=== PATIENT | male | born 1955 | race Caucasian/White ===

== ENCOUNTER 2017-03-04 11:17 | Emergency (ER) | payer BC ==
[2017-03-04] MEDS ORDERED: Ketorolac INJ* 60 MG/2 ML VIAL IM ONE (11:44)
[2017-03-04] MEDS ORDERED: oxyCODONE/Acetamin 5/325 MG* TAB PO ONE (11:44)
--- NOTE | 2017-03-04 12:34 | ED ---
Back Pain - HPI Summary HPI Summary: 61M presents with left side back pain into left hip and thigh for a week. He states the pain is a sharp pain. He has had this pain before. He denies any new injury. He denies any fever, saddle anaesthesia, loss of bowel or bladder. He denies any numbness or tingling. He states that he was seen at urgent care on Mon and prescribed flexeril and medrol. He states that it is not getting any better with this. He called urgent care who told him to come here. He has been taking tyenlol for the pain. He states that has been having difficulty walking due to pain. - History of Current Complaint Chief Complaint: EDBackInjuryPain Stated Complaint: LT HIP PAIN Time Seen by Provider: 03/04/17 11:24 Pain Intensity: 10 - Allergies/Home Medications Allergies/Adverse Reactions: Allergies Allergy/AdvReac Type Severity Reaction Status Date / Time No Known Allergies Allergy Verified 10/09/12 11:34 PMH/Surg Hx/FS Hx/Imm Hx Endocrine/Hematology History: Denies: Hx Anticoagulant Therapy Cardiovascular History: Reports: Hx Coronary Artery Disease - HX OF STENTS AND HIGH CHOLESTEROL, Hx Hypertension - ON MEDICATION FOR Denies: Hx Pacemaker/ICD Sensory History: Reports: Hx Contacts or Glasses - GLASSES Denies: Hx Hearing Aid Opthamlomology History: Reports: Hx Contacts or Glasses - GLASSES Psychiatric History: Denies: Hx Panic Disorder - Surgical History Surgery Procedure, Year, and Place: 1965-APPENDECTOMY. 2009-CARDIAC CATH WITH STENTS- [facility] Hx Anesthesia Reactions: No Infectious Disease History: No Infectious Disease History: Denies: Traveled Outside the [place] in Last 30 Days - Family History Known Family History: Positive: Cardiac Disease - Social History Alcohol Use: None Substance Use Type: Reports: None Smoking Status (MU): Never Smoked Tobacco Review of Systems Negative: Fever Negative: Chest Pain Negative: Shortness Of Breath Positive: Myalgia - left side back and hip pain All Other Systems Reviewed And Are Negative: Yes Physical Exam Triage Information Reviewed: Yes Vital Signs On Initial Exam: Initial Vitals Temp Pulse Resp BP Pulse Ox 98.1 F 91 18 173/94 100 03/04/17 11:19 03/04/17 11:19 03/04/17 11:19 03/04/17 11:19 12/02/17 11:19 Vital Signs Reviewed: Yes Appearance: Positive: Well-Appearing Skin: Positive: Warm, Dry Head/Face: Positive: Normal Head/Face Inspection Eyes: Positive: Normal, Conjunctiva Clear Respiratory/Lung Sounds: Positive: Clear to Auscultation, Breath Sounds Present Cardiovascular: Positive: Normal, RRR Musculoskeletal: Positive: Strength/ROM Intact - left hip, Other - tenderness over SI joint, neg SLR, good pulses Neurological: Positive: Normal Psychiatric: Positive: Normal Diagnostics - Vital Signs Vital Signs Temp Pulse Resp BP Pulse Ox 03/04/17 12:08 16 03/04/17 11:48 81 98 03/04/17 11:47 145/79 03/04/17 11:19 98.1 F 91 18 173/94 100 - Laboratory Lab Statement: Any lab studies that have been ordered have been reviewed, and results considered in the medical decision making process. - CT abd CT Interpretation: Positive (See Comments) - IMPRESSION: CT findings are most consistent with interval worsening of degenerative disc disease of the lumbar spine most severely affecting L3/L4 and L5/S1. There has been interval formation of gas at the L3/L4 intervertebral disc since the 2012 lumbar spine. In the chronic setting this could be "vacuum disc phenomenon". If the patient is exhibiting signs of sepsis than discitis could be considered as well. CT Interpretation Completed By: Radiologist Back Pain Course/Dx - Course Course Of Treatment: 61M presents with left side back pain into left hip and thigh for a week. He states the pain is a sharp pain. He has had this pain before. He denies any new injury. He denies any fever, saddle anaesthesia, loss of bowel or bladder. He denies any numbness or tingling. He states that he was seen at urgent care on Mon and prescribed flexeril and medrol. He states that it is not getting any better with this. He called urgent care who told him to come here. He has been taking tyenlol for the pain. He states that has been having difficulty walking due to pain. on exam tender over SI joint left. full ROM hip. neg SLR. will get CT. CT shows worsening of degenerative disc disease. do not suspect discitis as no recent illness and afebrile. urine no infection. explained results with patient. will change muscle relaxer and will give PT referral. patient understand and agrees with plan. - Diagnoses Differential Diagnosis/HQI/PQRI: Positive: Herniated Disc, Strain, Sprain Provider Diagnoses: Back pain, Left sided sciatica Discharge - Discharge Plan Condition: Good Disposition: HOME Prescriptions: Lidocaine PATCH 5%* [Lidoderm 5% Patch*] 1 patch TRANSDERM DAILY #6 patch Methocarbamol [Robaxin-750 MG TAB] 750 mg PO TID PRN #21 tab PRN Reason: Pain Patient Education Materials: Sciatica (ED) Referrals: Cristiano Cazares MD [Primary Care Provider] [place] [facility] [place]Medical Doctor] - Additional Instructions: Apply lidocaine patches to area for up to 12 hours in one 24 hour period Stop other muscle relaxer and start robaxin three times a day Use ibuprofen or Tylenol for pain every 6 hours ice/heat area, move as much as possible Follow up with PT Follow up with primary within 5 days Return to ED if develop any new or worsening symptoms
--- NOTE | 2017-03-04 12:46 | RAD ---
INDICATION: Low back and left hip pain. COMPARISON: Similar examination dated May 17, 2011 TECHNIQUE: Contiguous axial sections were obtained beginning lower thoracic vertebra and continuing through the sacrum. Images were reconstructed in the sagittal and coronal planes. FINDINGS: Unless otherwise specified comparisons below reference the May 17, 2011 CT examination of the lumbar spine. The vertebral bodies and facet joints are appropriately aligned in the sagittal projection. Degenerative changes include loss of intervertebral disc height most severely affecting L3/L4 and L5/S1. There is interval appearance of gas at L3/L4 which could represent vacuum disc phenomenon or less likely gas-forming microorganisms. The gas at L5/S1 is essentially stable. There is interval appearance of sclerotic change involving the articulating services at L3/L4, more severely affecting L3. The cortices of the lumbar vertebral bodies are intact. There is broad-based disc protrusion combining with facet arthropathy and thickening of ligamentum flavum to cause mild central stenosis at L2/L3, severe stenosis at L3/L4 and mild stenosis at L4/L5. At the left lamina of the L1 vertebral body there is a hypoattenuating focus that is unchanged in the previous CT examination. IMPRESSION: CT findings are most consistent with interval worsening of degenerative disc disease of the lumbar spine most severely affecting L3/L4 and L5/S1. There has been interval formation of gas at the L3/L4 intervertebral disc since the 2012 lumbar spine. In the chronic setting this could be "vacuum disc phenomenon". If the patient is exhibiting signs of sepsis than discitis could be considered as well.
[2017-03-04] MEDS ORDERED: Lidocaine PATCH 5%* 1 PATCH TRANSDERM ONE (13:21)
[2017-03-04] MEDS ORDERED: Methocarbamol TAB* 500 MG PO ONE (13:59)
[2017-03-04 14:15] VITALS: BP 172/86
[2017-03-04 14:39] LABS: Urine Bacteria Absent (Absent); Urine Bilirubin Negative (Negative); Urine Glucose Negative (Negative); Urine Nitrite Negative (Negative)
== END 2017-03-04 14:28 | disposition home or self-care (01) ==
LOC: ED 11:17
DX: M54.32 Sciatica, left side (principal); M54.9 Dorsalgia, unspecified; M25.552 Pain in left hip
CPT/HCPCS: 72131; 81003; 81015; 96372; 99282; A9270-GY; J1885

== ENCOUNTER 2024-04-21 12:03 | Observation (INO) ==
[2024-04-21 12:39] LABS: ABS Lymphocytes 0.8 10^3/uL (1.0-4.8); ABS Monocytes 0.9 10^3/uL (0.0-1.1); ABS Neutrophils 6.5 10^3/uL (1.5-7.6); ABS Nucleated RBC 0.01 10^3/ul; Eosinophil % 0.6 %; Hematocrit 46.3 % (38-53); Hemoglobin 16.1 g/dL (13.2-16.3); Lymphocyte % 9.1 %; Mean Corpuscular Hemoglobin 31.7 pg (27-33); Mean Corpuscular Hgb Conc 34.8 g/dL (31-36); Mean Corpuscular Volume 91.2 fL (80-97); Mean Platelet Volume 9.2 fL (7.5-11.2); Nucleated Red Blood Cells % 0.1 %/100WBC (0.0-0.8); Platelet Count 158 10^3/uL (150-450); Red Blood Count 5.08 10^6/uL (4.06-5.63); Red Cell Distribution Width 13.5 % (12-17); White Blood Count 8.3 10^3/uL (3.6-10.2)
[2024-04-21 12:53] LABS: INR 0.91 (0.85-1.14)
[2024-04-21 13:36] LABS: Albumin 4.6 g/dL (3.5-5.7); Albumin/Globulin Ratio 1.9 (1-3); Calcium 9.6 mg/dL (8.6-10.3); Creatinine, Serum 0.85 mg/dL (0.67-1.17); Globulin 2.4 g/dL (2-4); Potassium 4.3 mmol/L (3.5-5.0); Total Bilirubin 0.6 mg/dL (0.2-1.0); eGFR CKD-EPI 94.6 (>60)
[2024-04-21 14:09] LABS: High Sensitivity Troponin 1 Hr < 3 pg/mL (<20)
[2024-04-21] MEDS: Iodixanol 320 (CONTRAST) 100 ML SDV IV ONE (14:17)
[2024-04-21] MEDS ORDERED: Sulfur Hexaflouride MICROSPHR 25 MG VIAL IV PRN (14:49)
[2024-04-21] MEDS ORDERED: Dextrose 50% Syringe 50 ml 25 GM/50 ML SYRINGE IV PUSH PRN (15:06)
[2024-04-21] MEDS: Enoxaparin 40 MG/0.4 ML SYR SUBCUT SCH (16:25)
[2024-04-21 16:50] LABS: Urine Appearance Clear; Urine Bacteria Absent /HPF (Absent); Urine Bilirubin Negative (Negative); Urine Blood Trace (Negative); Urine Color Light-Yellow; Urine Glucose 4+ (>=1000 mg/dL) (Negative); Urine Ketones Negative (Negative); Urine Nitrite Negative (Negative); Urine Protein Trace (Negative); Urine Red Blood Cell 2+(6-10/hpf) /HPF (0-Trace); Urine Urobilinogen Negative (Negative); Urine White Blood Cell Trace(0-5/hpf) /HPF (0-Trace); Urine pH 6.5 (5.0-8.0)
[2024-04-22] MEDS: Empagliflozin 25 MG TAB PO SCH (09:51)
[2024-04-22 20:02] VITALS: BP 136/82
== END 2024-04-22 23:01 | disposition home or self-care (01) ==
LOC: EDHOLD 12:03 → ED 12:03 → MEDTELE 18:05
PROVIDERS: ADMIT Internal Medicine; ATTEND Internal Medicine